=== PATIENT | female | born 1975 ===

== ENCOUNTER 2021-07-02 11:17 | Emergency (ER) | payer SELFPAY ==
[2021-07-02] MEDS ORDERED: LACTATED RINGERS 1,000 ML IV ONE (11:43)
--- NOTE | 2021-07-02 11:51 | Emergency Department Report ---
ED General Adult HPI - General Chief complaint: Weakness Stated complaint: Chest pain, abdominal pain, headache and fever PUI?: Yes Time Seen by Provider: 07/02/21 11:27 Source: patient, family, RN notes reviewed Mode of arrival: Ambulatory - History of Present Illness Initial comments: The patient was evaluated in the emergency department for symptoms described in the history of present illness. He/she was evaluated in the context of the global COVID-19 pandemic, which necessitated consideration that the patient might be at risk for infection with the virus that causes COVID-19. Institutional protocols and algorithms that pertain to the evaluation of patients at risk for COVID-19 are in a state of rapid change based on information released by regulatory bodies including the CDC and federal and state organizations. These policies and algorithms were followed during the patient's care in the emergency department. Please note that these policies, procedures and recommendations changed on a rapid basis. The patient is a 45-year-old female. She is not known to myself previously. She states that she is not . She denies chronic medical conditions. The patient is not vaccinated against COVID-19. The patient states that she has not seen a primary care doctor in a long time. The patient is accompanied by family member who she requests translate for her. In addition, this provider is conversant in [place]. The patient presents to the ER with 4 days of chest pain, epigastric pain, and lower abdominal pain. Positive fever, positive loss of taste and smell, positive shortness of breath. Denies personal and family history of DVT, pulmonary embolism and heart disease. Denies oral contraceptive use, travel, surgery, immobilization, leg pain or leg swelling. Has taken Tylenol and aspirin at home within the past 7 days. Denies allergies to medications. Denies surgical history. -: days(s) Location: head, chest, abdomen Radiation: abdomen Consistency: intermittent Improves with: rest Worsens with: movement - Related Data Previous Rx's Medication Instructions Recorded Last Taken Type Acetaminophen [Non-Aspirin Extra 500 mg PO Q6HR PRN #30 tablet 07/02/21 Unknown Rx Strength] Amoxicillin [Trimox CAP] 1,000 mg PO Q8H #28 capsule 07/02/21 Unknown Rx Azithromycin [Zithromax TAB] 250 mg PO QDAY #4 tablet 07/02/21 Unknown Rx Ondansetron [Zofran Odt] 4 mg PO Q8HR PRN #20 tab.rapdis 07/02/21 Unknown Rx Allergies Allergy/AdvReac Type Severity Reaction Status Date / Time No Known Allergies Allergy Unverified 07/02/21 12:13 ED Review of Systems ROS: Stated complaint: ABNER EATING/CHEST PAIN/ONEL Other details as noted in HPI Constitutional: fever, malaise, weakness, other (Positive loss of taste and smell) Eyes: denies: eye discharge Respiratory: cough, shortness of breath Cardiovascular: chest pain Gastrointestinal: abdominal pain Genitourinary: denies: dysuria Musculoskeletal: back pain Neurological: headache, weakness Hematological/Lymphatic: denies: easy bleeding ED Past Medical Hx - Medications Home Medications: Home Medications Medication Instructions Recorded Confirmed Last Taken Type Acetaminophen [Non-Aspirin Extra 500 mg PO Q6HR PRN #30 tablet 07/02/21 Unknown Rx Strength] Amoxicillin [Trimox CAP] 1,000 mg PO Q8H #28 capsule 07/02/21 Unknown Rx Azithromycin [Zithromax TAB] 250 mg PO QDAY #4 tablet 07/02/21 Unknown Rx Ondansetron [Zofran Odt] 4 mg PO Q8HR PRN #20 tab.rapdis 07/02/21 Unknown Rx ED Physical Exam - General Limitations: No Limitations General appearance: alert, anxious - Head Head exam: Present: atraumatic, normocephalic - Eye Eye exam: Present: normal appearance, EOMI. Absent: nystagmus - ENT ENT exam: Present: normal exam, normal orophraynx, mucous membranes moist, normal external ear exam - Neck Neck exam: Present: normal inspection, full ROM. Absent: tenderness, meningismus - Respiratory Respiratory exam: Present: normal lung sounds bilaterally, chest wall tende rness. Absent: respiratory distress, wheezes, rales, rhonchi, stridor, decreased breath sounds - Cardiovascular Cardiovascular Exam: Present: normal rhythm, tachycardia, normal heart sounds. Absent: bradycardia, irregular rhythm, systolic murmur, diastolic murmur, rubs, gallop - GI/Abdominal GI/Abdominal exam: Present: soft, tenderness, other (There is epigastric tenderness. There is suprapubic and right lower quadrant tenderness.). Absent: distended, guarding, rebound, rigid, pulsatile mass - Extremities Exam Extremities exam: Present: normal inspection, full ROM, other (2+ pulses noted in the bilateral upper and lower extremities. There is no palpable cord. negative Homans sign. Muscular compartments are soft. The pelvis is stable.). Absent: pedal edema, calf tenderness - Back Exam Back exam: Present: normal inspection. Absent: tenderness, CVA tenderness (R), CVA tenderness (L), paraspinal tenderness, vertebral tenderness - Neurological Exam Neurological exam: Present: alert, normal gait, other (No facial droop. Tongue midline. Extraocular movements intact bilaterally. Facial sensation intact to light touch in V1, V2, V3 distribution bilaterally. 5 and a 5 strength in 4 extremities. Sensation intact to light touch in 4 extremities.). Absent: motor sensory deficit - Psychiatric Psychiatric exam: Present: anxious - Skin Skin exam: Present: warm, dry, intact, normal color. Absent: rash ED Course Vital Signs 07/02/21 07/02/21 07/02/21 12:30 12:44 13:41 Temperature 100.4 F H 99.1 F Pulse Rate 86 83 Respiratory 18 18 14 Rate Blood Pressure 100/50 Blood Pressure 135/67 [Left] O2 Sat by Pulse 95 99 Oximetry 07/02/21 13:42 Temperature Pulse Rate Respiratory Rate Blood Pressure Blood Pressure [Left] O2 Sat by Pulse 97 Oximetry - Reevaluation(s) Reevaluation #1: 07/02/21 11:49 Differential diagnosis, include but not limited to: COVID-19, pneumonia, pulmonary embolism, GERD, gastritis, hiatal hernia, coronary artery disease, urinary tract infection, appendicitis, colitis, diverticulitis Assessment and plan: 45-year-old female with a fever and initial tachycardia, now resolved, who is not vaccinated against COVID-19, presenting with 4 days of symptoms, including epigastric pain, lower abdominal pain, chest pain, cough. Very suspicious for acute COVID-19. Patient given trial of ambulation, and did not desaturate; O2 sat remains 95 to 99% on room air. Given tachycardia, fever, high suspicion for Covid, in combination with epigastric and lower abdominal pain, we will obtain CT angiogram of the chest (given propensity for Covid patients to develop pulmonary embolism), and CT scan of the abdomen pelvis to evaluate for appendicitis, and complex intra-abdominal infection. EKG unremarkable, troponin and CK pending; assuming troponin negative x1, acute myocardial infarction may be ruled out as symptoms have been present for greater than 8 hours (as per the [employer] clinical policy). The patient is low risk for major adverse cardiac event as per heart score. We will reassess after initial data points. Appropriate laboratory studies will be ordered. I discussed this plan of care with the patient. Patient and family member have articulated understanding. 07/02/21 14:24 Patient reassessed. She feels improved. Tachycardia and fever resolved. Belly soft on repeat examination. Walking with a steady gait. Laboratory studies reviewed and appreciated, CT scan of the chest, abdomen, pelvis reviewed and appreciated. Multifocal pneumonia is suggested. This is likely secondary to COVID-19. No surgical process is identified. No active vomiting. Discharge with amoxicillin, azithromycin, pain medication, nausea medication, instructions to follow-up with outpatient primary care. ED Medical Decision Making - Lab Data Result diagrams: 07/02/21 12:11 07/02/21 12:11 Vital Signs 07/02/21 07/02/21 12:30 12:44 Temperature 100.4 F H Pulse Rate 86 Respiratory 18 18 Rate Blood Pressure 100/50 O2 Sat by Pulse 95 Oximetry Lab Results 07/02/21 07/02/21 07/02/21 Range/Units 12:11 12:11 12:11 WBC 3.8 L (4.5-11.0) K/mm3 RBC 4.53 (3.65-5.03) M/mm3 Hgb 13.7 (10.1-14.3) gm/dl Hct 40.6 (30.3-42.9) % MCV 90 (79-97) fl MCH 30 (28-32) pg MCHC 34 (30-34) % RDW 13.3 (13.2-15.2) % Plt Count 145 (140-440) K/mm3 Lymph % (Auto) 32.2 (13.4-35.0) % Henry % (Auto) 4.0 (0.0-7.3) % Eos % (Auto) 0.0 (0.0-4.3) % Baso % (Auto) 0.3 (0.0-1.8) % Lymph # (Auto) 1.2 (1.2-5.4) K/mm3 Henry # (Auto) 0.2 (0.0-0.8) K/mm3 Eos # (Auto) 0.0 (0.0-0.4) K/mm3 Baso # (Auto) 0.0 (0.0-0.1) K/mm3 Seg Neutrophils % 63.5 (40.0-70.0) % Seg Neutrophils # 2.4 (1.8-7.7) K/mm3 Sodium 139 (137-145) mmol/L Potassium 3.6 (3.6-5.0) mmol/L Chloride 102.3 (98-107) mmol/L Carbon Dioxide 24 (22-30) mmol/L Anion Gap 16 mmol/L BUN 4 L (7-17) mg/dL Creatinine 0.6 (0.6-1.2) mg/dL Estimated GFR > 60 ml/min BUN/Creatinine Ratio 7 % Glucose 96 (65-100) mg/dL Calcium 8.3 L (8.4-10.2) mg/dL Magnesium 2.40 H (1.7-2.3) mg/dL Total Bilirubin 0.20 (0.1-1.2) mg/dL AST 60 H (5-40) units/L ALT 38 (7-56) units/L Alkaline Phosphatase 74 (35-129) units/L Total Creatine Kinase 233 H (30-135) units/L Troponin T < 0.010 (0.00-0.029) ng/mL Total Protein 7.5 (6.3-8.2) g/dL Albumin 3.5 L (3.9-5) g/dL Albumin/Globulin Ratio 0.9 % Lipase 34 (13-60) units/L HCG, Quant 1.06 (0-4) mIU/mL - EKG Data -: EKG Interpreted by Ms EKG shows normal: sinus rhythm Rate: normal - EKG Data When compared to previous EKG there are: previous EKG unavailable 07/02/21 11:48 EKG is interpreted at 11: 29 Sinus rhythm, 88 bpm. Normal axis, normal intervals, normal P wave axis. There is high left ventricular voltage. This is not a STEMI. There is no prior for comparison. EKG is not a STEMI - Radiology Data Radiology results: pending, report reviewed, image reviewed CT ABDOMEN AND PELVIS WITH IV CONTRAST INDICATION: Epigastric pain. Lower abdominal pain and fever. TECHNIQUE: Following the administration of intravenou s contrast, multiple axial CT images of the abdomen and pelvis were acquired. Sagittal and coronal reformats were obtained. All CT performed at this facility utilize dose reduction techniques including automated exposure control, iterative reconstruction and weight based dosing when appropriate to reduce patient radiation dose to as low as reasonably achievable. COMPARISON: No prior abdominal imaging is available for comparison. FINDINGS: Limited imaging of the bilateral lung bases demonstrates patchy bilateral groundglass densities. ABDOMEN: Multiple stones are noted within the gallbladd er. The liver, spleen, stomach, pancreas, bilateral adrenal glands and bilateral kidneys show no evidence of acute abnormality. The abdominal aorta is normal in caliber. There are a few loops of mildly prominent fluid-filled small bowel throughout the abdomen. There is no evidence of bowel obstruction. The appendix is visualized and appears normal. PELVIS: No free fluid is seen within the pelvis. The uterus and urinary bladder appear within normal limits. BONES AND SOFT TISSUES: No significant abnormality. IMPRESSION: 1. Few loops of mildly prominent fluid-filled small bowel throughout the abdomen representing a nonspecific finding. This may be associated with diarrheal illness. 2. Patchy bilateral pulmonary densities concerning for atypical infectious process. 3. Cholelithiasis. Signer Name: Jodie Wesley MD Signed: 07/02/2021 12:59 PM Workstation Name: [id number] CTA CHEST WITH IV CONTRAST INDICATION: acute chest pain, fever OMNI 350 100 ML. TECHNIQUE: Axial CT images were obtained through the chest after injection of 100 mL Omnipaque 350 IV contrast. 3 plane MIP reconstructions were produced. All CT scans at this location are performed using CT dose reduction for ALARA by means of automated exposure control. COMPARISON: None available. FINDINGS: Pulmonary Arteries: No pulmonary emboli. Lungs: There are patchy peripheral areas of consolidation and groundglass opacity in both lungs. Trachea and Bronchi: No significant abnormality. Heart and Pericardium: No significant abnormality. Vasculature: No significant abnormality. Lymphatics: No lymphadenopathy. Additional Findings: None. Upper Abdomen: There are some gallstones in the gallbladder. Skeletal Structures: No acute findings or aggressive bone lesions. IMPRESSION: 1. No CT evidence for pulmonary embolism. 2. Patchy peripheral areas of consolidation or groundglass opacity likely indicating multifocal pneumonia. 3. Cholelithiasis. Signer Name: Ryan Adames MD Signed: 07/02/2021 12:52 PM Wo rkstation Name: [id number] Critical care attestation.: If time is entered above; I have spent that time in minutes in the direct care of this critically ill patient, excluding procedure time. ED Disposition Clinical Impression: Suspected COVID-19 virus infection, COVID-19 vaccination not done, Acute abdominal pain, Acute chest pain Disposition: HOME / SELF CARE / HOMELESS Is pt being admited?: No Does the pt Need Aspirin: No Condition: Good Instructions: Chest Pain (ED), COVID-19 Additional Instructions: the patient most likely has novel coronavirus/COVID. the symptoms of COVID will typically persist 10 to 14 days. There is no cure at this time for COVID. Please make certain to self isolate and self quarantine, follow-up with an outpatient primary care doctor within the next 3 to 5 days, wash hands with soap and water frequently, thoroughly and often, patient may take the prescribed medications as needed and directed. Advance diet and drink plenty of fluids as tolerated. Avoid interactions with the very elderly, very young, and those with chronic medical conditions. Return to the emergency room right away with new pain, worsening pain, migration of pain, projectile vomiting, change in mental status, confusion, inability to tolerate liquid feeds, new, worsened or different symptoms not present on the initial emergency room evaluation. Please take the prescribed antibiotics, pain medication, nausea medication as needed and directed. Urine culture was sent today, please have your primary care doctor contact the medical records department to obtain culture results. Recommend that patient receive outpatient COVID-19 vaccination when she has improved from her symptoms. Do not take them for medication for the next 2 days, if patient takes this medication. For the patient's convenience, we have listed a number of primary care doctors that she may follow-up with. es muy probable que el paciente tenga un nuevo coronavirus / COVID. los sntomas de COVID generalmente persistirn de 10 a 14 weber. No existe denise en leelee momento para COVID. Asegrese de aislarse y ponerse en cuarentena, viet un seguimiento con un mdico de atencin primaria para pacientes ambulatorios dentro de los prximos 3 a 5 weber, lvese las caitlin con agua y jabn con frecuencia, a fondo y con frecuencia, el paciente puede giulia los medicamentos recetados segn sea necesario y se le indique. Avance en la dieta y rusty muchos lquidos segn los tolere. Evite las interacciones con personas muy ancianas, muy jvenes y con enfermedades crnicas. Regrese a la helen de emergencias de inmediato con nuevo dolor, empeoramiento del dolor, migracin del dolor, vmitos en proyectil, cambio en el estado mental, confusin, incapacidad para tolerar alimentos lquidos, sntomas nuevos, empeorados o diferentes que no estn presentes en la evaluacin inicial de la helen de emergencias. [place] los antibiticos recetados, los analgsicos, los medicamentos para las n useas segn sea necesario y se le indique. El urocultivo se envi hoy. Pdale a gutiérrez mdico de atencin primaria que se comunique con el departamento de registros mdicos para obtener los resultados del cultivo. Recomendar que el paciente reciba la vacuna COVID-19 dylan paciente ambulatorio cuando haya jaleel de dhaval sntomas. No los tome dylan medicamento chuck los prximos 2 weber, si el paciente javed leelee medicamento. Para la conveniencia de la paciente, hemos enumerado jeanna serie de mdicos de atencin primaria con los que puede realizar un seguimiento. Referrals: MEENA CARABALLO MD [Staff Physician] - 7-10 days [facility] [Provider Group] - 7-10 days Forms: Work/School Release Form(ED) Print Language: [place] CITIZEN Heart Score - HEART Score History: Slightly suspicious EKG: Non-specific Age: 45-65 Risk factors: No known risk factors Troponin: < normal limit HEART Score: 2 - EKG Read Time Time EKG Completed: 11:30 EKG Read Time: 11:30 - Critical Actions Critical Actions: 0-3 pts:0.9-1.7%risk of adverse cardiac event.Candidate for discharge
[2021-07-02] MEDS ORDERED: ONDANSETRON 4 MG/2 ML INJ IV NR (12:30)
[2021-07-02] MEDS ORDERED: MORPHINE 2 MG/1 ML INJ IV NR (12:30)
[2021-07-02] MEDS ORDERED: ACETAMINOPHEN 500 MG TAB PO NR (12:30)
[2021-07-02 12:55] LABS: Basophils % (Auto) 0.3 % (0.0-1.8); Hematocrit 40.6 % (30.3-42.9); Hemoglobin 13.7 gm/dl (10.1-14.3); Lymphocytes # (Auto) 1.2 K/mm3 (1.2-5.4); Lymphocytes % (Auto) 32.2 % (13.4-35.0); Mean Corpuscular HGB Conc 34 % (30-34); Mean Corpuscular Volume 90 fl (79-97); Monocytes # (Auto) 0.2 K/mm3 (0.0-0.8); Platelet Count 145 K/mm3 (140-440); Red Blood Count 4.53 M/mm3 (3.65-5.03); Red Cell Distribution Width 13.3 % (13.2-15.2)
[2021-07-02] MEDS ORDERED: PANTOPRAZOLE 40 MG INJ IV NR (13:00)
[2021-07-02 13:01] LABS: Alanine Aminotransferase 38 units/L (7-56); Albumin 3.5 g/dL (3.9-5); Blood Urea Nitrogen 4 mg/dL (7-17); Calcium 8.3 mg/dL (8.4-10.2); Hemolysis Index 2
[2021-07-02 13:07] LABS: BUN/Creatinine Ratio 7
--- NOTE | 2021-07-02 13:56 | Cat Scan Report ---
CTA CHEST WITH IV CONTRAST INDICATION: acute chest pain, fever OMNI 350 100 ML. TECHNIQUE: Axial CT images were obtained through the chest after injection of 100 mL Omnipaque 350 IV contrast. 3 plane MIP reconstructions were produced. All CT scans at this location are performed using CT dose reduction for ALARA by means of automated exposure control. COMPARISON: None available. FINDINGS: Pulmonary Arteries: No pulmonary emboli. Lungs: There are patchy peripheral areas of consolidation and groundglass opacity in both lungs. Trachea and Bronchi: No significant abnormality. Heart and Pericardium: No significant abnormality. Vasculature: No significant abnormality. Lymphatics: No lymphadenopathy. Additional Findings: None. Upper Abdomen: There are some gallstones in the gallbladder. Skeletal Structures: No acute findings or aggressive bone lesions. IMPRESSION: 1. No CT evidence for pulmonary embolism. 2. Patchy peripheral areas of consolidation or groundglass opacity likely indicating multifocal pneum onia. 3. Cholelithiasis. Signer Name: Ryan Adames MD Signed: 07/02/2021 1:52 PM Workstation Name: [id number]
--- NOTE | 2021-07-02 14:04 | Cat Scan Report ---
CT ABDOMEN AND PELVIS WITH IV CONTRAST INDICATION: Epigastric pain. Lower abdominal pain and fever. TECHNIQUE: Following the administration of intravenous contrast, multiple axial CT images of the abdo men and pelvis were acquired. Sagittal and coronal reformats were obtained. All CT performed at this facility utilize dose reduction techniques including automated exposure control, iterative reconstru ction and weight based dosing when appropriate to reduce patient radiation dose to as low as reasonab ly achievable. COMPARISON: No prior abdominal imaging is available for comparison. FINDINGS: Limited imaging of the bilateral lung bases demonstrates patchy bilateral groundglass densities. ABDOMEN: Multiple stones are noted within the gallbladder. The liver, spleen, stomach, pancreas, bilateral adr enal glands and bilateral kidneys show no evidence of acute abnormality. The abdominal aorta is hermelinda l in caliber. There are a few loops of mildly prominent fluid-filled small bowel throughout the abdom en. There is no evidence of bowel obstruction. The appendix is visualized and appears normal. PELVIS: No free fluid is seen within the pelvis. The uterus and urinary bladder appear within normal limits. BONES AND SOFT TISSUES: No significant abnormality. IMPRESSION: 1. Few loops of mildly prominent fluid-filled small bowel throughout the abdomen representing a nonsp ecific finding. This may be associated with diarrheal illness. 2. Patchy bilateral pulmonary densities concerning for atypical infectious process. 3. Cholelithiasis. Signer Name: Jodie Wesley MD Signed: 07/02/2021 1:59 PM Workstation Name: [id number]
[2021-07-02 14:09] VITALS: BP 135/67
[2021-07-02] MEDS ORDERED: AZITHROMYCIN 250 MG TAB PO ONE (14:23)
[2021-07-02] MEDS ORDERED: AMOXICILLIN 500 MG CAP PO ONE (14:23)
[2021-07-02 14:36] LABS: Bacteria,Urine 1+ /HPF (Negative); Bilirubin,Urine NEG (Negative); Blood,Urine NEG (Negative); Color,Urine Yellow (Yellow); Mucus,Urine 1+ /HPF
[2021-07-02 19:36] LABS: INR 0.89 (0.87-1.13)
--- NOTE | 2021-07-03 13:31 | Electrocardiograph Report ---
[facility] Test Date: 2021-07-02 Test Time: 11:29:46 Pat Name: BEN MCKEON Department: Room: Gender: F Repairer Hairspring: KARISSA : 1975 Requested By: LILLIE ELIZABETH Order Number: [id number] Reading MD: Neelima Bower Measurements Intervals [place] Rate: 88 P: 47 NM: 129 QRS: 42 QRSD: 78 T: 28 QT: 346 QTc: 420 Interpretive Statements Sinus rhythm No previous ECG available for comparison Electronically Signed On 07-03-2021 13:31:27 EDT by Neelima Bower
== END 2021-07-02 15:04 | disposition home or self-care (01) ==
LOC: EDBD → ED 11:17
DX: R07.89 Other chest pain (principal); R10.9 Unspecified abdominal pain; R51.9 Headache, unspecified; R50.9 Fever, unspecified; Z79.899 Other long term (current) drug therapy
CPT/HCPCS: 36415; 71275; 74177; 80053; 81001; 82550; 83690; 83735; 84484; 84702; 85025; 85379; 85610; 87086; 93005; 96361; 96374; 96375; 99284; C9113; J2270; J2405; J7120; Q9967

== ENCOUNTER 2021-07-03 09:19 | Emergency (ER) | payer SELFPAY ==
[2021-07-03] MEDS ORDERED: ACETAMINOPHEN 325 MG TAB PO ONE (09:50)
--- NOTE | 2021-07-03 10:30 | XRay Report ---
XR chest routine 2V INDICATION / CLINICAL INFORMATION: Shortness of breath. COMPARISON: 07/02/2021 FINDINGS: SUPPORT DEVICES: None. HEART /PULMONARY VASCULATURE: No significant abnormality. LUNGS / PLEURA: Moderate patchy pulmonary airspace opacities appear unchanged from recent CT. No siza ble pleural effusion. No pneumothorax. ADDITIONAL FINDINGS: No significant additional findings. IMPRESSION: Unchanged bilateral pulmonary airspace disease. Signer Name: Alin Khan MD Signed: 07/03/2021 10:26 AM Workstation Name: [id number]
[2021-07-03 10:40] LABS: Hematocrit 40.1 % (30.3-42.9); Hemoglobin 13.3 gm/dl (10.1-14.3); Mean Corpuscular HGB Conc 33 % (30-34); Mean Corpuscular Volume 89 fl (79-97); Platelet Count 149 K/mm3 (140-440); Red Cell Distribution Width 12.9 % (13.2-15.2)
[2021-07-03 10:58] LABS: Alanine Aminotransferase 59 units/L (7-56); Albumin 3.7 g/dL (3.9-5); BUN/Creatinine Ratio 7; Blood Urea Nitrogen 4 mg/dL (7-17); Calcium 8.1 mg/dL (8.4-10.2); Hemolysis Index 15
[2021-07-03] MEDS ORDERED: SODIUM CHLORIDE 0.9% 1000 ML 1,000 ML IV ONE (12:24)
[2021-07-03] MEDS ORDERED: dexAMETHasone 20 MG/5 ML VIAL IV ONE (12:25)
[2021-07-03] MEDS ORDERED: ONDANSETRON 4 MG/2 ML INJ IV ONE (12:26)
[2021-07-03] MEDS ORDERED: KETOROLAC 30 MG/1 ML INJ IV ONE (12:36)
--- NOTE | 2021-07-03 12:44 | Emergency Department Report ---
ED Fever HPI - General Chief Complaint: Nausea/Vomiting/Diarrhea Stated Complaint: NAUSEA/DIARRHEA/ FEVER/PT WAS HERE YESTARDAY Time Seen by Provider: 07/03/21 12:21 - History of Present Illness Initial Comments: CC: "I feel so dizzy." HPI: This is a 45 yo female with hx of gastritis who presents with fever, chills, headache, sore throat, shortness of breath, diarrhea, loss of taste/smell for 4 days. Patient's 10 year old daughter is hospitalized at [facility] for COVID infection. Patient was evaluated at this hospital yesterday. According to electronic medical record, studies obtained on yesterday CT angiogram no evidence of PE, patchy areas of consolidation and groundglass opacity indicating multifocal pneumonia CT abd/pelvis: cholelithasis management advisor at the bedside provided language interpretation Patient is not vaccinated against COVID-19. Her relative became ill after receiving Covid vaccine. Consequently she is afraid of the side effects of the vaccine. She lives with her and daughter. Her 10-year-old daughter is special needs. She does not work outside of the home. Timing/Duration: other (4 days) Fever Severity/Quality: greater than 102 F Fever Therapy LENDING CONSULTANT: none Associated Symptoms: cough, headache, muscle aches, shortness of breath, other (Nausea vomiting diarrhea) ED Review of Systems ROS: Stated complaint: NAUSEA/DIARRHEA/ FEVER/PT WAS HERE YESTARDAY Other details as noted in HPI Comment: Unobtainable due to pts medical conditions Constitutional: chills, fever, malaise ENT: throat pain Respiratory: cough, shortness of breath Cardiovascular: denies: chest pain Gastrointestinal: nausea, vomiting, diarrhea. denies: abdominal pain Neurological: headache ED Past Medical Hx - Past Medical History Previous Medical History?: Yes Additional medical history: Gastritis - Surgical History Past Surgical History?: No - Family History Family history: diabetes, hypertension - Social History Smoking Status: Never Smoker Substance Use Type: None - Medications Home Medications: Home Medications Medication Instructions Recorded Confirmed Last Taken Type Acetaminophen [Non-Aspirin Extra 500 mg PO Q6HR PRN #30 tablet 07/02/21 07/03/21 Unknown Rx Strength] Amoxicillin [Trimox CAP] 1,000 mg PO Q8H #28 capsule 07/02/21 07/03/21 Unknown Rx Azithromycin [Zithromax TAB] 250 mg PO QDAY #4 tablet 07/02/21 07/03/21 Unknown Rx Ondansetron [Zofran Odt] 4 mg PO Q8HR PRN #20 tab.rapdis 07/02/21 07/03/21 Unknown Rx Prednisone [predniSONE 10 mg 10 mg PO .TAPER #1 tab.ds.pk 07/03/21 Unknown Rx (6-Day Pack, 21 Tabs)] ED Physical Exam - General Limitations: Language Barrier (management advisor at the bedside for language assistance) General appearance: alert, in no apparent distress, other (Nontoxic appearing, speaking full word sentences, no apparent distress) - Head Head exam: Present: atraumatic, normocephalic - Eye Eye exam: Present: normal appearance - ENT ENT exam: Present: mucous membranes moist - Neck Neck exam: Present: normal inspection, full ROM - Respiratory Respiratory exam: Present: normal lung sounds bilaterally. Absent: respiratory distress, wheezes, rales, rhonchi - Cardiovascular Cardiovascular Exam: Present: regular rate, normal rhythm, normal heart sounds. Absent: systolic murmur, diastolic murmur, rubs, gallop - GI/Abdominal GI/Abdominal exam: Present: soft, normal bowel sounds. Absent: distended, tenderness, guarding, rebound - Extremities Exam Extremities exam: Present: normal inspection - Neurological Exam Neurological exam: Present: alert, oriented X3 - Psychiatric Psychiatric exam: Present: normal affect, normal mood - Skin Skin exam: Present: warm, dry, intact, normal color. Absent: rash ED Course Vital Signs 07/03/21 07/03/21 07/03/21 11:03 11:05 11:25 Temperature 101.6 F H Pulse Rate 86 85 Respiratory 18 24 24 Rate Blood Pressure Blood Pressure 92/48 [Left] O2 Sat by Pulse 95 Oximetry 07/03/21 07/03/21 07/03/21 11:30 11:46 12:00 Temperature Pulse Rate 89 88 85 Respiratory 20 24 24 Rate Blood Pressure 86/46 90/51 92/52 Blood Pressure [Left] O2 Sat by Pulse Oximetry 07/03/21 12:15 Temperature 99.5 F Pulse Rate Respiratory Rate Blood Pressure Blood Pressure [Left] O2 Sat by Pulse 99 Oximetry ED Medical Decision Making - Lab Data Result diagrams: 07/03/21 10:15 07/03/21 10:15 - Radiology Data Radiology results: report reviewed Patient Name: BEN CHRISTIAN Gender: Female Date of : 1975 Referring Provider: DEANA VALENTINE Organization: [facility] Accession Number: [id number] Requested Date: July 03, 2021 09:50 Report Status: Final Requested Procedure: 1 Procedure Description: XR chest routine 2V Modality: XR Findings Reporting MD: Alin Khan Dictation Time: July 03, 2021 09:26 Museum Specialist: Not available [place] Operator Date: XR chest routine 2V INDICATION / CLINICAL INFORMATION: Shortness of breath. COMPARISON: 07/02/2021 FINDINGS: SUPPORT DEVICES: None. HEART /PULMONARY VASCULATURE: No significant abnormality. LUNGS / PLEURA: Moderate patchy pulmonary airspace opacities appear unchanged from recent CT. No sizable pleural effusion. No pneumothorax. ADDITIONAL FINDINGS: No significant additional findings. IMPRESSION: Unchanged bilateral pulmonary airspace disease. Signer Name: Alin Khan MD Signed: 07/03/2021 9:26 AM Workstation Name: [id number] - Medical Decision Making COVID-19 pneumonia: Patient prescribed prednisone taper: Patient was given instructions in Lithuanian. Room air oxygen saturation 94 to 95% after ambulation. Likely prescribed azithromycin and Zofran yesterday. Patient received IV fluid normal saline bolus for dehydration. Critical care attestation.: If time is entered above; I have spent that time in minutes in the direct care of this critically ill patient, excluding procedure time. ED Disposition Clinical Impression: Pneumonia due to COVID-19 virus, COVID-19, Dehydration Disposition: 01 HOME / SELF CARE / HOMELESS Is pt being admited?: No Does the pt Need Aspirin: No Condition: Stable Instructions: Bacterial Pneumonia (ED), COVID-19 Prescriptions: Prednisone [predniSONE 10 mg (6-Day Pack, 21 Tabs)] 10 mg PO .TAPER #1 tab.ds.pk Referrals: MEENA CARABALLO MD [Staff Physician] - 3-5 Days Print Language: CYPRIOT
[2021-07-03 14:51] VITALS: BP 77/40
== END 2021-07-03 16:01 | disposition home or self-care (01) ==
LOC: ED 09:19
DX: U07.1 COVID-19 (principal); J12.82 Pneumonia due to coronavirus disease 2019; E86.0 Dehydration; Z79.899 Other long term (current) drug therapy
CPT/HCPCS: 36415; 71046; 80053; 85027; 96361; 96374; 96375; 99284; J1100; J1885; J2405; J7030; 96367